=== PATIENT | female | born 1935 | race Caucasian/White ===

== ENCOUNTER → 2022-07-30 | Outpatient (CLI) | payer MEDICARE, SELFPAY ==
--- NOTE | 2022-07-30 15:06 | US_ITS ---
RENAL ULTRASOUND CLINICAL HISTORY: stage 3a chronic kidney disease. TECHNIQUE: Infante scale and limited color imaging of the kidneys, bladder, inferior vena cava, and aorta. COMPARISON: None FINDINGS: The right kidney measures 7.1 cm. The echogenicity is increased. There is no hydronephrosis or perinephric collection. There is no focal renal mass or calculus seen. The left kidney measures 7.7 cm. The echogenicity is increased. There is no hydronephrosis or perinephric collection. There is no focal renal mass or calculus seen. Bladder is decompressed, limiting evaluation. Prevoid bladder volume = 31 cc. Right ureteral jet visualized. Left ureteral jet not visualized. Incidentally noted cholelithiasis. US/Kidney and Bladder IMPRESSION: Atrophic bilateral kidneys with increased cortical echogenicity, suggestive of medical renal disease. No hydronephrosis. Electronically Signed: Everett Hammonds MD at 4:40 EDT ,
== END | disposition home or self-care (01) ==
PROVIDERS: PCP Internal Medicine; Referring Provider Internal Medicine; Visit Provider Internal Medicine
DX: N18.31 Chronic kidney disease, stage 3a (principal)
CPT/HCPCS: 76770

== ENCOUNTER → 2022-08-10 | Outpatient (CLI) | payer MEDICARE, SELFPAY ==
[2022-08-10 19:36] LABS: Vitamin B12 749 pg/mL (211-911)
[2022-08-12 14:09] LABS: Dilute Prothrombin Time (dPT) 34.5 sec (0.0-47.6); Dilute Russell Viper Venom 36.9 sec (0.0-47.0); Thrombin Time 17.6 sec (0.0-23.0)
[2022-08-13 17:55] LABS: Interpretation Comment: (.)
== END | disposition home or self-care (01) ==
LOC: MTLAB 16:10
PROVIDERS: PCP Internal Medicine; Referring Provider Internal Medicine; Visit Provider Internal Medicine
DX: R76.8 Other specified abnormal immunological findings in serum (principal); E53.8 Deficiency of other specified B group vitamins
CPT/HCPCS: 36415; 82607

== ENCOUNTER → 2023-08-02 | Outpatient (CLI) | payer MEDICARE, SELFPAY ==
--- NOTE | 2023-08-02 15:55 | RAD_ITS ---
INDICATION: COUGH -- STAT EXAMINATION/TECHNIQUE: X-RAY - XR Chest 2 Views COMPARISON: FINDINGS: LINES/DEVICES: None. LUNGS: The lungs are hyperaerated. Possible focal right infrahilar mild infiltrate. No pneumothorax. MEDIASTINUM AND CARDIOVASCULAR STRUCTURES: Cardiac silhouette not enlarged. Calcified aortic arch. Central airways and mediastinal contour are unremarkable. BONES AND SOFT TISSUES: Unremarkable. RAD/Chest PA and Lateral IMPRESSION: The lungs are hyperaerated. Possible focal right infrahilar mild infiltrate. Electronically Signed: Gerhard Tee DO at 16:25 EDT Reading Location ID and State: [facility] / [place] Tel [phone], Service support ,
[2023-08-02 17:55] LABS: Absolute Lymphocyte Count 0.87 X10^3/uL (0.83-4.51); Absolute Neutrophil Count 11.9 X10^3/uL (2.0-7.7); Basophil# 0.04 X10^3/uL; Basophil% 0.3 % (0-1); Eosinophil# 0.03 X10^3/uL; Eosinophils% 0.2 % (0-5); Hematocrit 34.5 % (37-47); Hemoglobin 10.8 g/dL (12.0-15.0); Lymphocyte # 0.87 X10^3/ul (0.83-4.51); Lymphocyte % 6.2 % (19-41); Mean Corp Hgb Conc 31.3 g/dL (32-36); Mean Corpuscular Hgb 28.7 pg (27.0-32.0); Mean Corpuscular Volume 91.8 fL (81-99); Mean Platelet Vol. 10.6 fl (6.2-12.0); Monocyte% 7.9 % (0-10); NRBC Flagged by Analyzer 0 % (0-5); Neutrophil # 11.87 X10^3/uL (2.7-7.7); Platelet Count 338 K/mm3 (150-450); RBC Distribution Width CV 14.6 % (11.6-14.6); RBC Distribution Width SD 48.8 fl (35.1-43.9); Red Blood Count 3.76 M/mm3 (4.2-5.4)
== END | disposition home or self-care (01) ==
PROVIDERS: PCP Internal Medicine; Referring Provider Nurse Practitioner Family; Visit Provider Nurse Practitioner Family
DX: R05.9 Cough, unspecified (principal)
CPT/HCPCS: 36415; 71046; 85025

== ENCOUNTER → 2025-02-07 | Outpatient (CLI) | payer MEDICARE, SELFPAY | END | disposition home or self-care (01) | PROVIDERS: PCP Internal Medicine; Referring Provider Otolaryngology Otolaryngology/Facial Plastic Surgery; Visit Provider Otolaryngology Otolaryngology/Facial Plastic Surgery | DX: L01.00 Impetigo, unspecified (principal) | CPT/HCPCS: 87070; 87205 ==

== ENCOUNTER 2025-04-06 16:28 | Emergency (ER) | payer MEDICARE, SELFPAY ==
[2025-04-06 16:29] VITALS: BP 182/72; PULSE 89; RESP 16; TEMP 36.5; O2SAT 98
[2025-04-06 16:31] VITALS: BMI 19.2
--- NOTE | 2025-04-06 17:01 | EDS_ITS ---
HPI <MERVAT Lira - Last Filed: 04/06/25 19:58> History of Present Illness Chief Complaint: Abn Labs Narrative Narrative: Patient presenting today due to concerns for abnormal labs. She was sent over by Dr. Rivers's office, her oncologist for breast cancer. He has been keeping an eye on her labs, her hemoglobin has been trending down and today was 7.1, prompting her to be sent in for evaluation. She also thinks that her iron was low but is not sure. She has a remote history of GI bleed several years ago from a gastric ulcer. She denies any abdominal pain, melena, or hematochezia. She reports that she is feeling well otherwise. She was recently treated for a sinus infection by ENT but is no longer taking any antibiotics. She denies any fevers or chills. PFSH <MERVAT Lira - Last Filed: 04/06/25 19:58> [facility] Medical History COVID-19 Weight loss Malignant neoplasm of breast (female) Hypothyroid Hypertension Abscess of back Home Medications ?Medication ?Instructions ?Recorded ?Last Taken ?Type amlodipine 5 mg tablet 5 mg PO DAILY 04/03/21 Unkno wn History ascorbic acid (vitamin C) 500 mg mg PO 04/03/21 Unknow n History capsule biotin 1 mg capsule 1 mg PO DAILY 04/03/21 Unkno wn History coenzyme Q10 75 mg capsule (Ultra 75 mg PO DAILY 04/03 Unknown History CoQ10) diphenhydramine HCl 25 mg tablet 25 mg PO QHS 04/03/21 Unknown History (Benadryl Allergy) flaxseed oil 1,000 mg capsule 1,000 mg PO DAILY Unknown History ibuprofen 200 mg tablet (Advil) 200 mg PO Q6H PRN 03/25 Unknown History levothyroxine 75 mcg tablet 75 mcg PO DAILY 04/03/21 U nknown History spironolactone 25 1 tab PO DAILY 04/03/21 Unkn own History mg-hydrochlorothiazide 25 mg tablet timolol maleate 0.5 % eye drops 1 drp ophthalmic (eye) BID 04/03/21 Unknown Hi story dexamethasone 6 mg tablet 6 mg PO DAILY #5 tabs Unknown Rx (Decadron) Allergy/AdvReac Type Severity Reaction Status Date / Time doxycycline Allergy Unknown unknown Verified 04/06/25 16:32 iodine Allergy Unknown unknown Verified 04/06/25 16:32 Surgical History History of partial colectomy Hx of appendectomy Hx of hysterectomy Hx of lumpectomy Social History Smoking Status: Never smoker second hand exposure: No alcohol intake: never substance use type: does not use ROS <MERVAT Lira - Last Filed: 04/06/25 19:58> ROS ED Constitutional Constitutional ED: Denies chills or fever(s) Cardiovascular Cardiovascular: Denies chest pain Respiratory/Chest Respiratory/Chest: Denies dyspnea Gastrointestinal Gastrointestinal: Denies abdominal pain, melena, nausea or vomiting Musculoskeletal Musculoskeletal: Denies arthralgias or myalgias Integumentary Denies rash Neurologic Neurologic: Denies weakness EXAM <MERVAT Lira - Last Filed: 04/06/25 19:58> Physical Exam Const Vital Signs: 04/06/25 16:29 04/06/25 17:24 04/06/25 18:47 Temperature 97.7 F L Temperature Source Oral Pulse Rate 89 86 Respiratory Rate 16 16 Respiratory Effort Normal Respiratory Pattern Normal Blood Pressure 182/72 H 154/90 H Blood Pressure Mean 108 111 Pulse Ox 98 99 Oxygen Delivery Method Room Air Room Air 04/06/25 19:40 Temperature 98.2 F Temperature Source Pulse Rate 73 Respiratory Rate 16 Respiratory Effort Respiratory Pattern Blood Pressure 145/72 H Blood Pressure Mean 96 Pulse Ox 96 Oxygen Delivery Method Positive well nourished, well developed and no apparent distress General Appearance ED: well developed HEENT Reports normocephalic and head/scalp atraumatic Mouth ED: Yes moist mucous membranes normal Eyes PERRL and EOMs intact bilaterally Neck full ROM and supple Chest Wall inspection of chest normal Resp normal respiratory effort and clear to auscultation bilaterally Cardio regular rate and regular rhythm GI soft to palpation, non-tender, non-distended and no masses GI Narrative: Rectal: Performed with nurse in the room, brown stool noted on VÍCTOR, normal sphincter tone Back/Spine normal ROM and normal to inspection Extremity normal to inspection and full ROM Neuro oriented x3, CN's II-XII intact bilaterally, moves all extremities, no focal motor deficits and no sensory deficits noted Sensorium / Orientation: awake and alert Psych mental status grossly normal and thought process normal Skin no rashes or lesions noted and no wounds <Dr. Errol Leon DO - Last Filed: 04/07/25 01:02> Physical Exam Const Vital Signs: 04/06/25 16:29 04/06/25 17:24 04/06/25 18:47 Temperature 97.7 F L Temperature Source Oral Pulse Rate 89 86 Respiratory Rate 16 16 Respiratory Effort Normal Respiratory Pattern Normal Blood Pressure 182/72 H 154/90 H Blood Pressure Mean 108 111 Pulse Ox 98 99 Oxygen Delivery Method Room Air Room Air 04/06/25 19:40 Temperature 98.2 F Temperature Source Pulse Rate 73 Respiratory Rate 16 Respiratory Effort Respiratory Pattern Blood Pressure 145/72 H Blood Pressure Mean 96 Pulse Ox 96 Oxygen Delivery Method MDM <MERVAT Lira - Last Filed: 04/06/25 19:58> [facility] MDM Narrative Medical decision making narrative: Patient presenting today due to concerns for abnormal labs that were obtained at her oncologist office, Dr. Rivers. She has a history of breast cancer, she reports she is getting chemotherapy twice a month. She states that her hemoglobin has been downtrending but she is unsure what her previous labs look like. Today she was told her hemoglobin was 7.1. Labs will be obtained to assess H&H, kidney function, electrolyte dy abnormality, stool occult will be obtained to assess for blood in the stool. Brown stool noted on VÍCTOR. Hemoglobin here is 7.4, creatinine 1.44, BUN 25. Her stool occult is positive. I did recommend admission to the hospital for GI evaluation, however, she is declining this and would like to go home. She reports that at her age she would not want anything invasive performed and does not want to be admitted to the hospital. I did speak with on-call oncologist for Dr. Rivers's group, she will have close outpatient follow-up. I also referred her to GI. Strict return instructions were discussed with her. She will be discharged home in stable condition. Lab Data Attestation: I reviewed the patient's lab results. Labs: Laboratory Results - last 24 hr 04/06/25 17:35 WBC 7.9 RBC 2.85 L Hgb 7.4 L Hct 23.8 L MCV 83.5 MCH 26.0 L MCHC 31.1 L RDW Std Deviation 48.5 H RDW Coeff of Solange 16.0 H Plt Count 468 H MPV 9.3 Immature Gran % (Auto) 0.400 Neut % (Auto) 60.2 Lymph % (Auto) 29.2 Ritchie % (Auto) 9.1 Eos % (Auto) 0.5 Baso % (Auto) 0.6 Absolute Neuts (auto) 4.8 Absolute Lymphs (auto) 2.32 Nucleated RBC % 0 Sodium 136 Potassium 3.8 Chloride 99 Carbon Dioxide 22.0 Anion Gap 15 BUN 25 H Creatinine 1.44 H Est GFR (MDRD) Non-Af 35 L BUN/Creatinine Ratio 17.6 Glucose 98 Calcium 10.5 Blood Type B POSITIVE Antibody Screen NEGATIVE <Dr. Errol Leon, DO - Last Filed: 04/07/25 01:02> [facility] Lab Data Labs: Laboratory Results - last 24 hr 04/06/25 17:35 WBC 7.9 RBC 2.85 L Hgb 7.4 L Hct 23.8 L MCV 83.5 MCH 26.0 L MCHC 31.1 L RDW Std Deviation 48.5 H RDW Coeff of Solange 16.0 H Plt Count 468 H MPV 9.3 Immature Gran % (Auto) 0.400 Neut % (Auto) 60.2 Lymph % (Auto) 29.2 Ritchie % (Auto) 9.1 Eos % (Auto) 0.5 Baso % (Auto) 0.6 Absolute Neuts (auto) 4.8 Absolute Lymphs (auto) 2.32 Nucleated RBC % 0 Sodium 136 Potassium 3.8 Chloride 99 Carbon Dioxide 22.0 Anion Gap 15 BUN 25 H Creatinine 1.44 H Est GFR (MDRD) Non-Af 35 L BUN/Creatinine Ratio 17.6 Glucose 98 Calcium 10.5 Blood Type B POSITIVE Antibody Screen NEGATIVE Treatment and Re-Evaluation :: I have personally performed a face to face assessment of the patient and have reviewed the TEE Note. I performed a substantive portion of the visit including all aspects of the following. My olivas findings include: History: Patient presents with anemia that has been getting worse. Patient had blood work done today prior to chemotherapy. Patient states her hemoglobin was low at 7.1. Patient states she has a questionable dark stool. Patient denies any pain. Patient denies any fevers or chills. Patient denies any weakness. Patient denies any shortness of breath or cough. Patient states she was working in the garden yesterday planting [employer]. Exam: Vital signs are stable except for an elevated blood pressure of 182/72. Patient is afebrile. Patient is in no acute distress. Oral mucosa is pink and moist. Neck is supple. Trachea is midline. There is no JVD. Heart was regular rate and rhythm. Lungs are clear and equal bilaterally. Abdomen is soft. Bowel sounds are normal. There is no tenderness. There is no guarding noted. Cranial nerves II through XII are intact. There are no focal motor or sensory deficits noted. Medical Decision Making: Differential diagnosis includes gastrointestinal bleeding, chronic anemia, electrolyte abnormality, and chemotherapy side effect. CBC will be obtained to assess for leukocytosis and anemia. Basic metabolic profile will be obtained to assess for electrolyte abnormality and renal function. Stool for occult blood will be obtained to assess for gastrointestinal bleeding. Stool was positive for occult blood. CBC was reviewed. There is anemia with a hemoglobin of 7.4 and hematocrit 23.8. Platelets were slightly elevated at 468. Basic metabolic profile was reviewed. BUN was 25 and creatinine was 1.44. There are no prior labs available for comparison. Blood type was B+. Antibody screen was negative. Patient was advised of her findings. Patient does not want to stay in the hospital for further workup of her gastrointestinal bleeding. Case was discussed with Dr. Rivers. He will follow-up with the patient as an outpatient. Patient understood and was agreeable with the plan. All questions were answered. Discharge Plan Triage Chief Complaint: Abn Labs ED Midlevel Provider: Tanya Hunter ED Provider: Errol Leon Dx/Rx/DC Orders Clinical Impression: Anemia, GI (gastrointestinal bleed), History of breast cancer Instructions: GI Bleeding Causes and Tests, ED Anemia, Type Not Specified (Adult) Prescriptions: No Action amlodipine 5 mg tablet 5 mg PO DAILY timolol maleate 0.5 % drops 1 drp ophthalmic (eye) BID levothyroxine 75 mcg tablet 75 mcg PO DAILY spironolacton-hydrochlorothiaz 25-25 mg tablet 1 tab PO DAILY ascorbic acid (vitamin C) 500 mg capsule PO Ultra CoQ10 75 mg capsule 75 mg PO DAILY ibuprofen [Advil] 200 mg tablet 200 mg PO Q6H PRN biotin 1 mg capsule 1 mg PO DAILY flaxseed oil 1,000 mg capsule 1,000 mg PO DAILY Rx Instructions: administer with a meal diphenhydramine HCl [Benadryl Allergy] 25 mg tablet 25 mg PO QHS dexamethasone [Decadron] 6 mg tablet 6 mg PO DAILY Qty: 5 0RF Primary Care Provider: Chelsey Storey Referrals: Chelsey Storey DO [Primary Care Provider] - 3-5 Days FriendSingh DO [Med Staff - Active Staff] - 3-5 Days Activity Restrictions/Additional Instructions: Please follow-up with GI, return for any concerning signs or symptoms. Print Language: Kuwaiti Disposition Disposition: Home, Self Care Discharge Date/Time: 04/06/25 19:41
[2025-04-06 17:48] LABS: Absolute Lymphocyte Count 2.32 X10^3/uL (0.83-4.51); Absolute Neutrophil Count 4.8 X10^3/uL (2.0-7.7); Basophil# 0.05 X10^3/uL; Basophil% 0.6 % (0-1); Eosinophil# 0.04 X10^3/uL; Eosinophils% 0.5 % (0-5); Hematocrit 23.8 % (37-47); Hemoglobin 7.4 g/dL (12.0-15.0); Lymphocyte # 2.32 X10^3/ul (0.83-4.51); Lymphocyte % 29.2 % (19-41); Mean Corp Hgb Conc 31.1 g/dL (32-36); Mean Corpuscular Volume 83.5 fL (81-99); Mean Platelet Vol. 9.3 fl (6.2-12.0); Monocyte# 0.72 X10^3/uL; Monocyte% 9.1 % (0-10); NRBC Flagged by Analyzer 0 % (0-5); Neutrophil # 4.78 X10^3/uL (2.7-7.7); Neutrophil % 60.2 % (47-70); Platelet Count 468 K/mm3 (150-450); RBC Distribution Width SD 48.5 fl (35.1-43.9); Red Blood Count 2.85 M/mm3 (4.2-5.4); White Blood Count 7.9 K/mm3 (4.4-11.0)
[2025-04-06 18:24] LABS: Anion Gap 15 (5-15); BUN 25 mg/dL (4-19); BUN/Creat Ratio 17.6 RATIO (10-20); Calcium,Total 10.5 mg/dL (7.6-11.0); Chloride 99 mmol/L (98-108); Creatinine, Serum 1.44 mg/dL (0.70-1.20); EST Glomerular Filtration Rate 35 (>60); Glucose 98 mg/dL (70-99); Potassium 3.8 mmol/L (3.3-5.1); Sodium Level 136 mmol/L (133-145)
[2025-04-06 18:47] VITALS: BP 154/90; PULSE 86; RESP 16; O2SAT 99
[2025-04-06 19:40] VITALS: BP 145/72; PULSE 73; RESP 16; TEMP 36.8; O2SAT 96
== END 2025-04-06 19:41 | disposition home or self-care (01) ==
PROVIDERS: Physician Assistant; Emergency Provider Emergency Medicine; PCP Internal Medicine; Visit Provider Emergency Medicine
DX: R79.9 Abnormal finding of blood chemistry, unspecified (principal); K92.2 Gastrointestinal hemorrhage, unspecified; D64.9 Anemia, unspecified; Z90.710 Acquired absence of both cervix and uterus; I10 Essential (primary) hypertension; Z85.3 Personal history of malignant neoplasm of breast; Z79.899 Other long term (current) drug therapy; E03.9 Hypothyroidism, unspecified; Z79.890 Hormone replacement therapy; Z90.49 Acquired absence of other specified parts of digestive tract; Z92.21 Personal history of antineoplastic chemotherapy
CPT/HCPCS: 80048; 82274; 85025; 86850; 86900; 86901; 99282; A4216